=== PATIENT | male | born 1985 | race Caucasian/White ===

== ENCOUNTER → 2016-08-11 | Day surgery (SDC) | payer BC ==
[2016-07-31 09:19] VITALS: Ht 190.5 cm; Wt 109.1 kg
[~2016-08-11] VITALS: Ht 190.5 cm; Wt 109.1 kg
[~2016-08-11] MED LIST: ATROPINE SULFATE 0.1 MG/ML 5ML SYR IV PRN; CLINDAMYCIN PHOS 150 MG/ML 2 ML VIAL IV SCH; DEXAMETHASONE SOD INJ 4 MG/ML VIAL ONE; EpHEDrine SULFATE INJ 50 MG/ML AMP IV PRN; EpINEphrine INJ 1MG/ML AMP 1 MG/ML AMP ONE; FENTANYL CITRATE INJ 50 MCG/1 ML 2 ML VIAL IV PRN; FENTANYL CITRATE INJ 50 MCG/1 ML 2 ML VIAL ONE; GLYCOPYRROLATE INJ 0.2 MG/ML VIAL ONE; HYDR-3419 PO; HYDROCODONE/ACETAMOPHEN 5/325MG TAB PO PRN; LACTATED RINGER'S 1000ML 1,000 ML IV SCH; LIDOCAINE 4% MPF SOAK 5 ML = 1 DOSE TOP ONE; LIDOCAINE HCL 2% 2 ML VIAL (20MG/ML) ONE; LIDOCAINE/EPINEPHRINE 1% INJ 50 ML VIAL ONE; MIDAZOLAM HCL 1 MG/ML 2ML VIAL ONE; NEOSTIGMINE METHYLSULFATE 5 MG/5 ML SYR ONE; ONDANSETRON INJ 2 MG/ML 2 ML VIAL IV PRN; ONDANSETRON INJ 2 MG/ML 2 ML VIAL ONE; OXYC-57 PO; OXYMETAZOLINE HCL 0.05% NA SPR 15 ML BTL PRN; OXYMETAZOLINE HCL 0.05% NA SPR 15 ML BTL SCH; PROPOFOL IV EMULSION 10 MG/ML 20 ML VIAL IV ONE
--- NOTE | 2016-08-11 10:42 | History & Physical Bridge - [place] ---
H&P Re-Evaluation Bridge Note: I have examined the patient, reviewed the History & Physical and in the interval since the performance of the History & Physical I have noted the following changes of clinical significance: No changes noted
--- NOTE | 2016-08-11 11:33 | [facility] Operative Report ---
Operative Report Operative Date Aug 11, 2016. Pre-Operative Diagnosis Nasal Septal Deviation, Hypertrophy of both Inferior Nasal Turbinates Post-Operative Diagnosis Same Procedure(s) Performed Septoplaty, Bilateral Inferior Turbinate Outfracture And Turbinoplasty Surgeon Dr Adams Curriculum Developer Surgeon(s) None Estimated Blood Loss 10ML Findings 1. SEVERE R DNS 2. L>R ITH Specimens None I attest to the content of the Intraoperative Record and any orders documented therein. Any exceptions are noted below.
--- NOTE | 2016-08-11 11:34 | Discharge Instructions ---
Discharge Instructions Admission Reason for Admission: Hearing Loss (Bilat) Deviated Nasal Septum, Hypert Discharge Discharge Diagnosis / Problem: SAME Discharge Goals Goal(s): Improve function Activity Recommendations Activity Limitations: as noted below 1. LIGHT ACTIVITY FOR 2 WEEKS 2. NO NOSE BLOWING FOR 2 WEEKS 3. NO DRIVING WHILE ON [place]CO . Current Hospital Diet Patient's current hospital diet: Discharge Diet Recommended Diet: Regular Diet Procedures Procedures Performed: Septoplaty, Bilateral Inferior Turbinate Outfracture And Turbinoplasty Pending Studies Studies pending at discharge: no Medical Emergencies . Who to Call and When: Medical Emergencies: If at any time you feel your situation is an emergency, please call 911 immediately. . Non-Emergent Contact Non-Emergency issues call your: Surgeon . . "Provider Documentation" section prepared by Julio Adams. VTE Core Measure Inpt VTE Proph given/why not?: SCD's
--- NOTE | 2016-08-11 12:19 | Anesthesia Progress Nt - [facility] ---
Anesthesia Post Op Note Date & Time Aug 11, 2016 at 12:20 Vital Signs Pain Intensity: 0 Vital Signs Past 12 Hours Date Time Temp Pulse Resp B/P Pulse Ox O2 Delivery O2 Flow Rate FiO2 08/11/16 12:12 36.5 63 18 127/74 95 Room Air 08/11/16 12:03 36.7 08/11/16 12:02 61 21 08/11/16 12:02 63 21 97 08/11/16 11:58 132/80 08/11/16 11:57 63 22 08/11/16 11:57 62 22 97 08/11/16 11:53 Room Air 08/11/16 11:53 128/75 08/11/16 11:52 63 15 08/11/16 11:52 63 15 98 08/11/16 11:49 128/77 08/11/16 11:47 63 13 08/11/16 11:47 63 13 97 08/11/16 11:43 141/86 08/11/16 11:42 77 11 100 08/11/16 11:42 79 11 08/11/16 11:37 36.8 88 16 147/53 97 Diffusion Mask 08/11/16 09:59 36.3 56 18 112/79 96 Room Air Notes Mental Status: alert / awake / arousable, participated in evaluation Pt Amnestic to Procedure: Yes Nausea / Vomiting: adequately controlled Pain: adequately controlled Airway Patency, RR, SpO2: stable & adequate BP & HR: stable & adequate Hydration State: stable & adequate Anesthetic Complications: no major complications apparent
[2016-08-11 12:33] VITALS: BP 124/83; PULSE 57; TEMP 36.6; O2SAT 95
--- NOTE | 2016-08-11 13:37 | OPERATIVE REPORT ---
DATE OF OPERATION: 08/11/2016 PREOPERATIVE DIAGNOSES: 1. Right septal deviation. 2. Left greater than right inferior turbinate hypertrophy. POSTOPERATIVE DIAGNOSES: 1. Right septal deviation. 2. Left greater than right inferior turbinate hypertrophy. PROCEDURES: 1. Septoplasty. 2. Bilateral inferior turbinate outfracture and turbinoplasty. SURGEON: Dr. Adams. ANESTHESIA: General endotracheal. ESTIMATED BLOOD LOSS: 10 mL. FINDINGS: 1. Severe right septal deviation. 2. Left greater than right inferior turbinate hypertrophy. SPECIMENS: None. COMPLICATIONS: None. INDICATIONS: The patient is a pleasant 31-year-old male with a history of right greater than left nasal airway obstruction which has been unresponsive to maximum medical therapy. He was found to have severe right septal deviation and left greater than right inferior turbinate hypertrophy. He presents for the above-mentioned procedures on an outpatient elective basis. DESCRIPTION OF PROCEDURE: After informed consent had been obtained from the patient, the patient was wheeled to the operating room and placed on the operating table in the supine position. Monitors were placed. After induction of general endotracheal anesthesia, the patient was prepped in the usual fashion for septoplasty. 1% lidocaine with 1:100,000 epinephrine was used to inject the nasal septum bilaterally, thereby performing hydrodissection of the mucoperichondrial and mucoperiosteal flaps. Lidocaine and epinephrine soaked pledgets were then placed in the bilateral nasal cavities and pressure applied. After allowing adequate time for vasoconstriction, the pledgets were removed and a #15 scalpel was used to make a left hemitransfixion incision through which the left-sided mucoperichondrial and mucoperiosteal flaps was elevated. A #15 scalpel was then used to incise the quadrangular cartilage with care to preserve a 1.5 cm dorsal and caudal strut and the right side mucoperichondrial and mucoperiosteal flap was elevated through this cartilaginous incision. A Kody knife was then used to remove the deviated portion of the quadrangular cartilage which was primarily impinging on the nasal airway anteriorly and inferiorly. Diogo-Smith forceps were used to remove some septal bone posteriorly which was causing some shift to the left hand side. Septal cavity was then suctioned. The left hemitransfixion incision was closed with several simple interrupted 4-0 chromic sutures. A 4-0 plain gut suture on a Devin needle was then used to perform a quilting stitch of the mucoperichondrial and mucoperiosteal flaps bilaterally to help prevent septal hematoma. A Peacock elevator was then used to infracture and subsequently outfracture the inferior turbinates bilaterally. The inferior turbinates were injected with 1% lidocaine with 1:100,000 epinephrine. A 2.0 mm turbinate blade using powered instrumentation was then used to perform bilateral inferior turbinoplasties in a submucosal fashion. The nasal cavities and nasopharynx were then suctioned. An orogastric tube was placed and the stomach was suctioned free of air and stomach contents. This marked the end of the case. The patient tolerated the procedure well and there were no apparent complications. The patient was extubated and transferred to recovery room in stable condition. I attest to the content of the Intraoperative Record and any orders documented therein. Any exceptio ns are noted below.
== END | disposition home or self-care (01) ==
LOC: X.SURG 09:41
DX: J34.3 Hypertrophy of nasal turbinates (principal); J34.2 Deviated nasal septum; H91.93 Unspecified hearing loss, bilateral; R13.10 Dysphagia, unspecified; Z82.2 Family history of deafness and hearing loss

== ENCOUNTER 2016-08-28 05:13 | Day surgery (SDC) | payer BC ==
[2016-08-18 14:07] LABS: BASO % 0.4 %; BASO ABS # 0.03 K/uL (0-0.2); COMPLETE YES; EOS % 3.2 %; HEMATOCRIT 44.4 % (42-52); IG% 0.4 %; LYMPH % 29.3 %; LYMPH ABS # 2.03 K/uL (1.2-3.4); MEAN CELL VOLUME 87.9 fL (80-100); MEAN CORPUSCULAR HEMOGLOBIN 31.9 pg (25-34); MEAN CORPUSCULAR HGB CONC 36.3 g/dl (32-36); MEAN PLATELET VOLUME 10.6 fL (7.4-10.4); MONO % 8.9 %; NEUT % 57.8 %; PLATELET COUNT 265 K/uL (130-400); RED BLOOD COUNT 5.05 M/uL (4.7-6.1); WHITE BLOOD COUNT 6.94 K/uL (4.8-10.8)
[2016-08-18 14:13] LABS: BUN/CREATININE RATIO 9.6 (10-20); CREATININE 0.99 mg/dl (0.60-1.40); POTASSIUM 3.5 mmol/L (3.5-5.1)
[2016-08-18 14:14] LABS: CALCIUM 8.9 mg/dl (8.5-10.1)
[2016-08-18 14:33] LABS: URINE APPEARANCE TURBID (CLEAR); URINE BILIRUBIN NEG (NEG); URINE COLOR YELLOW; URINE EPITHELIAL CELL AUTO 0-5 /lpf (0-5); URINE NITRITE NEG (NEG); UROBILINOGEN NEG (NEG)
[2016-08-18 14:34] LABS: MANUAL MICROSCOPIC REQUIRED? NO; REVIEW REQ? NO
[~2016-08-28] VITALS: Ht 190.5 cm; Wt 109.1 kg
[~2016-08-28 05:13] MED LIST changes: -ATROPINE SULFATE 0.1 MG/ML 5ML SYR IV PRN; -CLINDAMYCIN PHOS 150 MG/ML 2 ML VIAL IV SCH; -DEXAMETHASONE SOD INJ 4 MG/ML VIAL ONE; -EpHEDrine SULFATE INJ 50 MG/ML AMP IV PRN; -EpINEphrine INJ 1MG/ML AMP 1 MG/ML AMP ONE; -FENTANYL CITRATE INJ 50 MCG/1 ML 2 ML VIAL IV PRN; -FENTANYL CITRATE INJ 50 MCG/1 ML 2 ML VIAL ONE; -GLYCOPYRROLATE INJ 0.2 MG/ML VIAL ONE; -HYDROCODONE/ACETAMOPHEN 5/325MG TAB PO PRN; -LACTATED RINGER'S 1000ML 1,000 ML IV SCH; -LIDOCAINE 4% MPF SOAK 5 ML = 1 DOSE TOP ONE; -LIDOCAINE HCL 2% 2 ML VIAL (20MG/ML) ONE; -LIDOCAINE/EPINEPHRINE 1% INJ 50 ML VIAL ONE; -MIDAZOLAM HCL 1 MG/ML 2ML VIAL ONE; -NEOSTIGMINE METHYLSULFATE 5 MG/5 ML SYR ONE; -ONDANSETRON INJ 2 MG/ML 2 ML VIAL IV PRN; -ONDANSETRON INJ 2 MG/ML 2 ML VIAL ONE; -OXYC-57 PO; -OXYMETAZOLINE HCL 0.05% NA SPR 15 ML BTL PRN; -OXYMETAZOLINE HCL 0.05% NA SPR 15 ML BTL SCH; -PROPOFOL IV EMULSION 10 MG/ML 20 ML VIAL IV ONE
[2016-08-28 05:51] VITALS: BP 128/72; PULSE 58; TEMP 36.5; O2SAT 97; Ht 190.5 cm; Wt 109.1 kg
[2016-08-28] MEDS ORDERED: LACTATED RINGER'S 1000ML 1,000 ML IV SCH (06:00)
[2016-08-28] MEDS ORDERED: CEFAZOLIN 2000 MG/60 ML D5W IV SCH ×2 (06:00)
[2016-08-28] MEDS ORDERED: MIDAZOLAM HCL 1 MG/ML 2ML VIAL ONE (06:40)
[2016-08-28] MEDS ORDERED: FENTANYL CITRATE INJ 50 MCG/1 ML 2 ML VIAL ONE ×2 (06:40→07:28)
[2016-08-28] MEDS ORDERED: DEXAMETHASONE SOD INJ 4 MG/ML VIAL ONE (06:45)
[2016-08-28] MEDS ORDERED: ONDANSETRON INJ 2 MG/ML 2 ML VIAL ONE (06:45)
[2016-08-28] MEDS ORDERED: LIDOCAINE HCL 2% 2 ML VIAL (20MG/ML) ONE (06:45)
[2016-08-28] MEDS ORDERED: PROPOFOL IV EMULSION 10 MG/ML 20 ML VIAL IV ONE ×2 (06:45→07:32)
[2016-08-28] MEDS ORDERED: CEFAZOLIN IV 2,000 MG/60 ML D5W IV ONE (07:01)
[2016-08-28] MEDS ORDERED: ONDANSETRON INJ 2 MG/ML 2 ML VIAL IV PRN (07:15)
[2016-08-28] MEDS ORDERED: EpHEDrine SULFATE INJ 50 MG/ML AMP IV PRN (07:15)
[2016-08-28] MEDS ORDERED: ATROPINE SULFATE 0.1 MG/ML 5ML SYR IV PRN (07:15)
[2016-08-28] MEDS ORDERED: BACITRACIN OINT 15 GM TUBE ONE (07:44)
[2016-08-28] MEDS ORDERED: OXYC-57 PO (08:00)
--- NOTE | 2016-08-28 08:00 | [facility] Post Operative Brief Note ---
Immediate Operative Summary Operative Date Aug 28, 2016. Pre-Operative Diagnosis Complication with circumcision, skin bridges. Post-Operative Diagnosis Same as preoperative. Procedure(s) Performed Revision of Circumcision Surgeon Hardness Inspector Surgeon(s) None Estimated Blood Loss none Findings 3 skin bridges Specimens None per surgeon
--- NOTE | 2016-08-28 08:02 | Discharge Instructions ---
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 Post Anesthesia Instructions: If you have had General Anesthesia or IV Sedation: * Do not drive today. * Resume driving when surgeon permits. * Do not make important decisions or sign legal documents today. * Call surgeon for: 1. Temperature elevations greater than 101 degrees F. 2. Uncontrollable pain. 3. Excessive bleeding. 4. Persistent nausea and vomiting. 5. Medication intolerance (nausea, vomiting or rash). * For nausea and vomiting use only clear liquids such as: tea, soda, bouillon until nausea subsides, then gradually increase diet as tolerated. * If you have any concerns or questions, call your surgeon's office. If physician is unavailable and it is an emergency, call 911 or go to the nearest emergency room. . Instructions / Follow-Up Instructions / Follow-Up put antibiotic ointment on wounds 2x a day Diet Recommendations Recommended Home Diet: resume previous diet Procedures Procedures Performed: Revision of Circumcision Pending Studies Studies pending at discharge: no Medical Emergencies . Who to Call and When: Medical Emergencies: If at any time you feel your situation is an emergency, please call 911 immediately. . Non-Emergent Contact Non-Emergency issues call your: Urologist . . "Provider Documentation" section prepared by Jeff Kamara. [place] Drug Monitoring Program Search Results: patient reviewed within database
[2016-08-28] MEDS ORDERED: OXYCODONE/ACETAMINOPHEN 5-325 TAB PO PRN (08:15)
[2016-08-28] MEDS: FENTANYL CITRATE INJ 50 MCG/1 ML 2 ML VIAL IV PRN ×2 (08:15→08:20)
[2016-08-28 08:35] VITALS: BP 128/72; PULSE 75; TEMP 36.5; O2SAT 97
--- NOTE | 2016-08-28 08:53 | Anesthesiology Progress Note ---
Anesthesia Post Op Note Date & Time Aug 28, 2016 at 08:53 Vital Signs Pain Intensity: 6.0 Vital Signs Past 12 Hours Date Time Temp Pulse Resp B/P Pulse Ox O2 Delivery O2 Flow Rate FiO2 08/28/16 08:33 36.5 55 16 120/76 95 Room Air 08/28/16 08:25 60 16 113/72 96 Room Air 08/28/16 08:15 77 16 120/75 96 Room Air 08/28/16 08:05 51 16 118/76 100 Mask 10 08/28/16 07:55 36.3 54 16 121/70 99 Mask 10 08/28/16 05:51 36.5 58 18 128/72 97 Room Air Notes Mental Status: alert / awake / arousable, participated in evaluation Pt Amnestic to Procedure: Yes Nausea / Vomiting: adequately controlled Pain: adequately controlled Airway Patency, RR, SpO2: stable & adequate BP & HR: stable & adequate Hydration State: stable & adequate Anesthetic Complications: no major complications apparent
[2016-08-28 09:13] VITALS: BP 123/77; PULSE 60; TEMP 36.4; O2SAT 95
--- NOTE | 2016-08-28 13:39 | OPERATIVE REPORT ---
DATE OF OPERATION: 08/28/2016 PREOPERATIVE DIAGNOSIS: Multiple skin bridges post circumcision. POSTOPERATIVE DIAGNOSIS: Same. PROCEDURE: Excision of skin bridges. FINDINGS: The patient had 2 skin bridges connecting the glans to the phallus. He also had one area where there was some folding of tissue creating a pocket on the frenulum. SURGEON: Dr. Kamara. ANESTHESIA: General. DRAINS: None. COMPLICATIONS: None. SPECIMENS: None. INDICATIONS: The patient is a 31-year-old white male who was seen in the office with complaint of an abnormal appearing circumcision. He was circumcised as a child but had developed some skin bridges which were bothersome to him and he would like to have them removed. PROCEDURE IN DETAIL: After the induction of an adequate general anesthetic and appropriate time-out, the patient's lower abdomen, genitalia, phallus were prepped with Betadine and draped in a sterile fashion. I used a lacrimal duct probe to probe the skin bridges. After finding the openings on either side, the skin bridges were excised proximally and distally. The skin edges were then reapproximated with a 4-0 Monocryl. This was done to the 2 complete skin bridges, the one fold on the frenulum was sharply incised to open the pocket up and then it was closed to make sure that the pocket stayed open. After completing this and making sure there was no bleeding, the wound was washed and dried, antibiotic ointment and a dry sterile dressing were applied. All needle, sponge and instrument counts were correct at the end of the case. The patient tolerated the procedure well and went to the recovery room in stable condition. I attest to the content of the Intraoperative Record and any orders documented therein. Any exceptio ns are noted below.
== END 2016-08-28 09:21 | disposition home or self-care (01) ==
LOC: C.ACU 05:13
PROVIDERS: ATTEND Urology
DX: T81.9XXA Unspecified complication of procedure, initial encounter (principal); N47.5 Adhesions of prepuce and glans penis; Y84.8 Other medical procedures as the cause of abnormal reaction of the patient, or of later complication, without mention of misadventure at the time of the procedure; H91.93 Unspecified hearing loss, bilateral; R23.8 Other skin changes; J34.3 Hypertrophy of nasal turbinates; J34.2 Deviated nasal septum

== ENCOUNTER → 2017-07-18 | Outpatient (CLI) | payer BC ==
[~2017-07-18] MED LIST changes: +CYCL10TA6 PO; -HYDR-3419 PO; +HYDR-5688 PO
[2017-07-18 09:37] LABS: BASO % 0.5 %; BASO ABS # 0.03 K/uL (0-0.2); EOS % 2.8 %; EOS ABS # 0.17 K/uL (0-0.5); HEMATOCRIT 48.3 % (42-52); HEMOGLOBIN 17.2 g/dL (14.0-18.0); IG# 0.01 K/uL (0.00-0.02); LYMPH % 34.6 %; LYMPH ABS # 2.11 K/uL (1.2-3.4); MEAN CELL VOLUME 89.6 fL (80-100); MEAN CORPUSCULAR HEMOGLOBIN 31.9 pg (25-34); MEAN CORPUSCULAR HGB CONC 35.6 g/dl (32-36); MEAN PLATELET VOLUME 10.7 fL (7.4-10.4); MONO % 7.7 %; MONO ABS # 0.47 K/uL (0.11-0.59); NEUT % 54.2 %; PLATELET COUNT 255 K/uL (130-400); RED CELL DISTRIBUTION WIDTH CV 12.6 % (11.5-14.5); RED CELL DISTRIBUTION WIDTH SD 40.7 fL (36.4-46.3); WHITE BLOOD COUNT 6.09 K/uL (4.8-10.8)
== END | disposition home or self-care (01) ==
LOC: C.LAB1850 08:27
PROVIDERS: ATTEND Nurse Practitioner Adult Health
DX: Z00.00 Encounter for general adult medical examination without abnormal findings (principal); Z13.0 Encounter for screening for diseases of the blood and blood-forming organs and certain disorders involving the immune mechanism

== ENCOUNTER 2017-08-02 15:41 | Emergency (ER) | payer BC, OTHER ==
[~2017-08-02] VITALS: Ht 190.5 cm; Wt 103.2 kg
[2017-08-02] MEDS ORDERED: HYDROCODONE/ACETAMOPHEN 5/325MG TAB PO STA (15:52)
[2017-08-02 15:53] VITALS: Ht 190.5 cm; Wt 103.2 kg
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
[2017-08-02] MEDS ORDERED: CYCLOBENZAPRINE HCL 10 MG TAB PO STA (17:56)
[2017-08-02] MEDS ORDERED: CYCL10TA6 PO (18:01)
[2017-08-02] MEDS ORDERED: HYDR-5688 PO (18:01)
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
[2017-08-02 18:25] VITALS: BP 151/90; PULSE 62; TEMP 36.7; O2SAT 98
== END 2017-08-02 18:26 | disposition home or self-care (01) ==
LOC: EDBD 15:41 → C.EDC 15:42
DX: S09.90XA Unspecified injury of head, initial encounter (principal); S16.1XXA Strain of muscle, fascia and tendon at neck level, initial encounter; S29.019A Strain of muscle and tendon of unspecified wall of thorax, initial encounter; V43.52XA Car driver injured in collision with other type car in traffic accident, initial encounter